=== PATIENT | female | born 1980 | race Caucasian/White ===

== ENCOUNTER 2016-12-15 05:44 | Inpatient (IN) | payer OTHER ==
[~2016-12-15] VITALS: Ht 157.5 cm; Wt 96.6 kg
[2016-12-15 06:31] LABS: BUN/CREATININE RATIO 20 (0-10)
[2016-12-16 04:25] LABS: HEMOGLOBIN 10.2 gm/dl (12.3-15.3)
[2016-12-17] MEDS ORDERED: COLACE 100MG C100 MG PO (08:50)
== END 2016-12-17 07:50 | disposition home or self-care (01) | DRG 766 ==
LOC: OB 05:44
PROVIDERS: ADMIT Obstetrics & Gynecology
PROC: 10D00Z1 Extraction of Products of Conception, Low, Open Approach (ICD-10-PCS; principal; 2016-12-15 07:30)
DX: O34.211 Maternal care for low transverse scar from previous cesarean delivery (principal); Z3A.38 38 weeks gestation of pregnancy; Z37.0 Single live birth; O24.425 Gestational diabetes mellitus in childbirth, controlled by oral hypoglycemic drugs; Z82.49 Family history of ischemic heart disease and other diseases of the circulatory system; Z83.3 Family history of diabetes mellitus; O09.523 Supervision of elderly multigravida, third trimester
CPT/HCPCS: 36415; 80048; 81001; 82800; 82962; 85014; 85018; 85025; 90715; C9113; J0690; J2274; J2405; J2590; J2765; J3010; J3430; J7120